=== PATIENT | female | born 1945 | race Caucasian/White ===

== ENCOUNTER → 2020-03-15 | Outpatient (CLI) | payer MEDICARE, OTHER ==
[~2020-03-15] MED LIST: ACEDIPPM PO; ASPI81EC PO; ATEN50 PO; DOCU100 PO; Dyazide 37.5-21 EACH PO; LEVSOD75 PO; NADO20 PO; OXYACE5T PO; Zocor10 MG
== END | disposition home or self-care (01) ==
LOC: LAB SHORT 13:48 → PLD 13:48
DX: D48.5 Neoplasm of uncertain behavior of skin (principal)
CPT/HCPCS: 88305

== ENCOUNTER 2024-12-29 06:38 | Day surgery (SDC) | payer OTHER ==
[~2024-12-29] VITALS: Ht 154.9 cm; Wt 76.3 kg
[~2024-12-29 06:38] MED LIST changes: +Balanced Salt Epinephrine Irrigation Solution 500 mL IR SCH; +Diazepam 2 MG Tab PO PRN; +Diazepam 5 MG Tab PO PRN; +Diazepam 5 MG Tab PO SCH; +Lidocaine HCl/Pf 1% 5 ML VIAL XX SCH; +Moxifloxacin HCL 0.5 MG/0.1 ML 0.4MLSYR RIGHTEYE SCH; +Ondansetron 4 MG SoluTab MM PRN; +PHENYLEPHRINE\\TROPICAMIDE\\TETRACAINE OPHTHALMIC DILATING SOLN RIGHTEYE PRN; +Povidone-Iodine 450 DROP/30 ML Solution ONE; +Povidone-Iodine 450 DROP/30 ML Solution RIGHTEYE SCH; +Tetracaine HCl/Pf 0.5% Opth Soln 4 ml ONE; +diazePAM 5 MG,diazePAM 2 MG PO SCH
[2024-12-29] MEDS ORDERED: Diazepam 2 MG Tab ONE (06:42)
[2024-12-29] MEDS ORDERED: Diazepam 5 MG Tab ONE (06:43)
--- NOTE | 2024-12-29 07:11 | NUR ---
12/29/24 0711 Michelle Doty PT STATES HER PREOP ANXIETY LEVEL IS A 5/10. PT CURRENTLY LYING DOWN IN BED WITH CALL LIGHT IN HAND. PULSE OX MONITORING IS IN PLACE.
--- NOTE | 2024-12-29 08:20 | NUR ---
12/29/24 0820 Shanna Gutierrez 0817 BP 173/64, HR 63, O2 AT 100, 16 RESPIRATIONS
[2024-12-29 08:37] VITALS: BP 161/63
== END 2024-12-29 08:56 | disposition home or self-care (01) ==
LOC: ORSCSDS 06:38
PROVIDERS: Student in an Organized Health Care Education/Training Program
PROC: 08RJ3JZ Replacement of Right Lens with Synthetic Substitute, Percutaneous Approach (ICD-10-PCS; principal; 2024-12-29 08:00)
DX: H25.813 Combined forms of age-related cataract, bilateral (principal); H01.004 Unspecified blepharitis left upper eyelid; H01.001 Unspecified blepharitis right upper eyelid; H02.886 Meibomian gland dysfunction of left eye, unspecified eyelid; H02.883 Meibomian gland dysfunction of right eye, unspecified eyelid; I10 Essential (primary) hypertension; E07.9 Disorder of thyroid, unspecified; Z79.899 Other long term (current) drug therapy
CPT/HCPCS: A9270; V2632

== ENCOUNTER 2025-01-05 06:37 | Day surgery (SDC) | payer OTHER ==
[~2025-01-05] VITALS: Ht 152.4 cm; Wt 75.0 kg
[~2025-01-05 06:37] MED LIST changes: +Diazepam 2 MG Tab ONE; +Diazepam 5 MG Tab ONE; -Diazepam 5 MG Tab PO PRN; -Diazepam 5 MG Tab PO SCH; +Moxifloxacin HCL 0.5 MG/0.1 ML 0.4MLSYR LEFTEYE SCH; -Moxifloxacin HCL 0.5 MG/0.1 ML 0.4MLSYR RIGHTEYE SCH; +PHENYLEPHRINE\\TROPICAMIDE\\TETRACAINE OPHTHALMIC DILATING SOLN LEFTEYE PRN; -PHENYLEPHRINE\\TROPICAMIDE\\TETRACAINE OPHTHALMIC DILATING SOLN RIGHTEYE PRN; +Povidone-Iodine 450 DROP/30 ML Solution LEFTEYE SCH; -Povidone-Iodine 450 DROP/30 ML Solution RIGHTEYE SCH
--- NOTE | 2025-01-05 06:59 | NUR ---
01/05/25 0659 Sanjana Thao PATIENT REPORTS ANXIETY LEVEL AT 3/10 PRIOR TO ADMINISTRATION OF VALIUM 7MG PO @ 0650 TETRACAINE IN AT 0654 PLEDGETT IN AT 0655 CALL LIGHT IN PT'S HAND. CONTINUOUS SPO2 AND HR MONITORING IN PLACE.
--- NOTE | 2025-01-05 07:55 | NUR ---
01/05/25 0755 Debra Durán VITALS AT 0755 BP:150/64 P:55 O2:98% 10 LITERS OF BLOW BY OXYGEN
[2025-01-05 08:24] VITALS: BP 164/65
== END 2025-01-05 08:20 | disposition home or self-care (01) ==
LOC: ORSCSDS 06:37
PROVIDERS: Student in an Organized Health Care Education/Training Program
PROC: 08RK3JZ Replacement of Left Lens with Synthetic Substitute, Percutaneous Approach (ICD-10-PCS; principal; 2025-01-05 08:00)
DX: H25.812 Combined forms of age-related cataract, left eye (principal); Z96.1 Presence of intraocular lens; I10 Essential (primary) hypertension; E07.9 Disorder of thyroid, unspecified; H01.004 Unspecified blepharitis left upper eyelid; H01.001 Unspecified blepharitis right upper eyelid; Z79.899 Other long term (current) drug therapy
CPT/HCPCS: A9270; V2632

== ENCOUNTER 2025-06-08 10:58 | Emergency (ER) | payer OTHER ==
[~2025-06-08] VITALS: Ht 152.4 cm; Wt 73.5 kg
[~2025-06-08 10:58] MED LIST changes: -Balanced Salt Epinephrine Irrigation Solution 500 mL IR SCH; -Diazepam 2 MG Tab ONE; -Diazepam 2 MG Tab PO PRN; -Diazepam 5 MG Tab ONE; -Lidocaine HCl/Pf 1% 5 ML VIAL XX SCH; -Moxifloxacin HCL 0.5 MG/0.1 ML 0.4MLSYR LEFTEYE SCH; -Ondansetron 4 MG SoluTab MM PRN; -PHENYLEPHRINE\\TROPICAMIDE\\TETRACAINE OPHTHALMIC DILATING SOLN LEFTEYE PRN; -Povidone-Iodine 450 DROP/30 ML Solution LEFTEYE SCH; -Povidone-Iodine 450 DROP/30 ML Solution ONE; -Tetracaine HCl/Pf 0.5% Opth Soln 4 ml ONE; -diazePAM 5 MG,diazePAM 2 MG PO SCH
[2025-06-08 11:29] LABS: BASOPHILS ABSOLUTE AUTO 0.05 K/mm3 (0.00-0.23); BASOPHILS PERCENT AUTO 0 % (0-2); EOSINOPHILS ABSOLUTE AUTO 0.05 K/mm3 (0.00-0.68); EOSINOPHILS PERCENT AUTO 0 % (0-6); Hematocrit 37.1 % (33.0-51.0); Hemoglobin 12.5 g/dL (11.5-16.0); IMMATURE GRAN ABSOLUTE AUTO 0.07 K/mm3 (0.00-0.10); IMMATURE GRAN PERCENT AUTO 0 % (0-1); LYMPHOCYTES ABSOLUTE AUTO 2.36 K/mm3 (0.84-5.20); LYMPHOCYTES PERCENT AUTO 15 % (21-46); MONOCYTES ABSOLUTE AUTO 1.07 K/mm3 (0.16-1.47); MONOCYTES PERCENT AUTO 7 % (4-13); Mean Corpuscular HGB Conc 33.7 g/dL (31.5-36.5); Mean Corpuscular Volume 92 fL (80-100); NEUTROPHILS ABSOLUTE AUTO 12.51 K/mm3 (1.96-9.15); NEUTROPHILS PERCENT AUTO 78 % (41-73); NRBC ABSOLUTE 0.00 K/mm3 (0.00-0.02); NRBC Auto 0.0 /100 WBC (0.0-0.2); Platelet Count 275 K/mm3 (150-400); RDW Coefficient Variation 13.1 % (11.7-14.2); RDW Standard Deviation 43.5 fL (35.1-46.3)
[2025-06-08 11:43] LABS: Source, Urine Clean Catch
[2025-06-08 11:56] LABS: Alanine Aminotransfer (ALT/SGP 25.0 U/L (12-78); Albumin, Blood 4.0 g/dL (3.4-5.0); Albumin/Globulin Ratio 1.0 (0.8-1.8); Anion Gap 6.0 mmol/L (3-11); Aspartate Aminotrans (AST/SGOT 16.0 U/L (12-37); Bilirubin, Total 0.7 mg/dL (0.1-1.0); Blood Urea Nitrogen 15.0 mg/dL (8-24); CO2, Blood 29.0 mmol/L (21-32); Calcium, Blood 9.5 mg/dL (8.5-10.1); Chloride, Blood 103.0 mmol/L (98-108); Creatinine, Blood 0.84 mg/dL (0.40-1.00); Globulin, Blood 4.1 g/dL (2.2-4.0); Glucose, Blood 189.0 mg/dL (70-99); Potassium, Blood 3.4 mmol/L (3.5-5.5); Sodium, Blood 135.0 mmol/L (136-145); Total Protein, Blood 8.1 g/dL (6.4-8.2)
[2025-06-08 12:12] LABS: Bilirubin, Urine Neg (Neg); Color, Urine Yellow (P-Yellow); Glucose Qualitative, Urine Neg (Neg); Ketones, Urine Neg (Neg); Leukocyte Esterase, Urine 3+ (Neg); Protein, Urine 3+ (Neg); Specific Gravity, Urine 1.010 (1.003-1.022); Urobilinogen, Urine NORM (Normal)
[2025-06-08 12:22] LABS: Red Blood Cells, Urine 50-100 /hpf (0-2); White Blood Cells, Urine 50-100 /hpf (0-5)
[2025-06-08] MEDS ORDERED: Cefpodoxime Pr100 MG PO (12:49)
[2025-06-08] MEDS ORDERED: CefTRIAXone Sodium 1,000 MG in NS 100 ML IV ONE (12:50)
[2025-06-08 13:45] VITALS: BP 143/72
== END 2025-06-08 13:59 | disposition home or self-care (01) ==
LOC: ER 10:58
PROVIDERS: Physician Assistant
DX: N39.0 Urinary tract infection, site not specified (principal); R31.9 Hematuria, unspecified; Z59.89 Other problems related to housing and economic circumstances; Z95.5 Presence of coronary angioplasty implant and graft
CPT/HCPCS: 80053; 81001; 85025; J0696